=== PATIENT | female | born 1955 | race Caucasian/White ===

== ENCOUNTER 2016-08-25 14:39 | Emergency (ER) | payer OTHER ==
[~2016-08-25] VITALS: Ht 160 cm; Wt 64.4 kg
[~2016-08-25 14:39] MED LIST: ALBUTEROL SULF8.5 GM IH; AMBIEN PO; AMBIEN5 MG PO; BACTRIM,SEPT1 TABLET PO; CITALOPRAM HBR10 MG PO; CLONAZEPAM0.5 MG PO; CLONAZEPAM1 MG PO; CYMBALTA60 MG PO; DULOXETINE HCL60 MG PO; FLOVENT 22120 INHALA IH; KLONOPIN1 MG PO; LEVAQUIN750 MG PO; PREDNISONE50 MG PO; ROBITUSSIN DM118 ML PO; SIMVASTATIN PO; SIMVASTATIN20 MG PO; VENTOLIN HFA18 GM IH; VITAMIN D PO; VITAMIN D250000 UNIT PO; ZOLPIDEM TARTRAT5 MG PO; ZYRTEC10 M2 PO
[2016-08-25] MEDS ORDERED: ALPRAZOLAM1 MG PO (15:21)
[2016-08-25] MEDS ORDERED: AMBIEN5 MG PO (15:24)
[2016-08-25] MEDS ORDERED: ERGOCALCIF50000 UNIT PO (15:24)
[2016-08-25] MEDS ORDERED: ESTRADIOL1 EAC4 TP (15:25)
[2016-08-25] MEDS ORDERED: DELTASONE20 M1 PO (16:02)
[2016-08-25] MEDS ORDERED: ATARAX10 MG PO (16:02)
[2016-08-25 16:05] VITALS: BP 132/81
== END 2016-08-25 16:12 | disposition home or self-care (01) ==
LOC: EME 14:39
DX: L50.9 Urticaria, unspecified (principal); J44.9 Chronic obstructive pulmonary disease, unspecified; M79.7 Fibromyalgia; F17.200 Nicotine dependence, unspecified, uncomplicated
CPT/HCPCS: 99281; 99284; J1100; J1200

== ENCOUNTER 2016-08-27 03:01 | Emergency (ER) | payer OTHER ==
[~2016-08-27] VITALS: Ht 160 cm; Wt 63.6 kg
[~2016-08-27 03:01] MED LIST changes: +ALPRAZOLAM1 MG PO; +ATARAX10 MG PO; +DELTASONE20 M1 PO; +ERGOCALCIF50000 UNIT PO; +ESTRADIOL1 EAC4 TP
[2016-08-27 03:30] VITALS: BP 120/89
[2016-08-27 04:41] LABS: HEMATOCRIT 51.3 % (36.0-46.0); MCH 31.2 PG (29.0-34.0); MCHC 32.9 G/DL (30.0-36.0); MCV 94.6 FL (83-99); MEAN PLAT.VOLUME 9.1 uM^3 (9.5-12.4); PLATELET COUNT 201 K/uL (156-360); RBC DIS.WIDTH-CV 13.9 % (11.8-14.6); RBC DIS.WIDTH-SD 48.5 % (39-53); RED BLOOD COUNT 5.42 M/uL (3.80-5.20); WHITE BLOOD COUNT 18.9 K/uL (4.1-10.2)
[2016-08-27 04:49] LABS: CHLORIDE 104 mEq/L (99-109); POTASSIUM 3.8 mEq/L (3.7-5.4); SODIUM 138 mEq/L (136-147)
[2016-08-27 04:52] LABS: GLUCOSE 154 mg/dL (70-99)
[2016-08-27 04:53] LABS: ANION GAP 10 MEQ/L (2-14)
[2016-08-27 04:54] LABS: TOTAL BILIRUBIN 0.6 mg/dL (0.0-1.0)
[2016-08-27 04:55] LABS: ALKALINE PHOSPHATASE 60 IU/L (3-129)
[2016-08-27 04:56] LABS: GFR ESTIMATE (CALCULATED) > 59 mL/min/
[2016-08-27 04:57] LABS: DIRECT BILIRUBIN 0.2 mg/dL (0.0-0.3); UREA NITROGEN (BUN) 13 mg/dL (9-23)
[2016-08-27 04:59] LABS: LIPASE 47 U/L (1.0-51.0)
[2016-08-27] MEDS ORDERED: OMEPRAZOLE20 M2 PO (05:37)
[2016-08-27] MEDS ORDERED: ATARAX,VISTARIL50 MG PO (05:37)
[2016-08-27] MEDS ORDERED: PREDNISONE20 MG PO (05:37)
== END 2016-08-27 05:54 | disposition home or self-care (01) ==
LOC: EME 03:01
PROVIDERS: Physician Assistant
DX: L50.9 Urticaria, unspecified (principal); R10.9 Unspecified abdominal pain; R19.7 Diarrhea, unspecified; D72.829 Elevated white blood cell count, unspecified; T78.40XA Allergy, unspecified, initial encounter; J44.9 Chronic obstructive pulmonary disease, unspecified; M79.7 Fibromyalgia; F17.200 Nicotine dependence, unspecified, uncomplicated
CPT/HCPCS: 74177; 80048; 80076; 83690; 85027; 99281; 99284; J1200; J2930; J7030; Q0177; S0028

== ENCOUNTER 2017-06-18 13:28 | Emergency (ER) | payer OTHER ==
[~2017-06-18] VITALS: Ht 160 cm; Wt 65.4 kg
[~2017-06-18 13:28] MED LIST changes: +ATARAX,VISTARIL50 MG PO; +OMEPRAZOLE20 M2 PO; +PREDNISONE20 MG PO
[2017-06-18 14:04] LABS: BASOPHIL (%) 0.5 % (0-1); EOSINOPHIL (%) 2.2 % (0-5); EOSINOPHIL COUNT 0.2 K/uL (0-0.3); HEMATOCRIT 47.6 % (36.0-46.0); HEMOGLOBIN 16.1 G/DL (11.9-15.5); IMMATURE GRANULOCYTE (%) 0.4 % (0.0-0.7); MCH 31.6 PG (29.0-34.0); MCHC 33.8 G/DL (30.0-36.0); MCV 93.5 FL (83-99); MONOCYTE (%) 6.1 % (3-12); MONOCYTE COUNT 0.5 K/uL (0-0.8); NEUTROPHIL (%) 64.8 % (45-76); PLATELET COUNT 162 K/uL (156-360); RBC DIS.WIDTH-CV 14.6 % (11.8-14.6); RED BLOOD COUNT 5.09 M/uL (3.80-5.20); WHITE BLOOD COUNT 7.7 K/uL (4.1-10.2)
[2017-06-18 14:17] LABS: CHLORIDE 105 mEq/L (99-109); POTASSIUM 3.7 mEq/L (3.7-5.4); SODIUM 138 mEq/L (136-147)
[2017-06-18 14:19] LABS: GLUCOSE 114 mg/dL (70-99)
[2017-06-18 14:22] LABS: SERUM ETHYL ALCOHOL < 10 mg/dL
[2017-06-18 14:23] LABS: CREATININE 0.7 mg/dL (0.6-1.3); GFR ESTIMATE (CALCULATED) > 59 mL/min/
[2017-06-18 14:24] LABS: UREA NITROGEN (BUN) 10 mg/dL (9-23)
[2017-06-18 14:41] LABS: APPEARANCE SL.HAZY ((CLEAR)); BILIRUBIN NEGATIVE; BLOOD NEGATIVE; COLOR YELLOW ((YELLOW)); GLUCOSE (STRIP) NEGATIVE; KETONES 5; LEUKOCYTES NEGATIVE; NITRITE NEGATIVE; PROTEIN (STRIP) NEGATIVE; UROBILINOGEN 0.2 MG/DL (0.2-1.0)
[2017-06-18 14:44] LABS: BACTERIA RARE /HPF; EPITHELIAL CELLS 1+ /HPF; MUCUS 1+ /LPF; RED BLOOD CELLS 0-5 /HPF (0-5); WHITE BLOOD CELLS 0-5 /HPF (0-5)
[2017-06-18 14:51] LABS: AMPHETAMINE NEGATIVE (500 ng/mL); BENZODIAZEPINES PRESUMPTIVE POSITIVE (150 ng/mL); COCAINE NEGATIVE (150 ng/mL); METHAMPHETAMINE NEGATIVE (500 ng/mL); OPIATES (MORPHINE) NEGATIVE (100 ng/mL); PHENCYCLIDINE NEGATIVE (25 ng/mL); THC CANNABINOIDS PRESUMPTIVE POSITIVE (50 ng/mL)
[2017-06-18 14:52] LABS: BARBITURATES NEGATIVE (200 ng/mL); BUPRENORPHINE NEGATIVE (10 ng/mL); METHADONE NEGATIVE (200 ng/mL); OXYCODONE NEGATIVE (100 ng/mL); PROPOXYPHENE NEGATIVE (300 ng/mL); TRICYCLIC ANTIDEPRESSANTS NEGATIVE (300 ng/mL)
[2017-06-18 15:24] LABS: BENZODIAZEPINES, URINE SCREEN POSITIVE (200 ng/mL)
[2017-06-18] MEDS ORDERED: ZITHROMAX Z-PA250 MG PO (16:25)
[2017-06-18 16:46] VITALS: BP 153/94
== END 2017-06-18 16:48 | disposition home or self-care (01) ==
LOC: EME 13:28
PROVIDERS: Emergency Medicine
DX: F41.9 Anxiety disorder, unspecified (principal); F32.9 Major depressive disorder, single episode, unspecified; J20.9 Acute bronchitis, unspecified; Z91.5 Personal history of self-harm; J44.9 Chronic obstructive pulmonary disease, unspecified; I10 Essential (primary) hypertension; M79.7 Fibromyalgia; F17.200 Nicotine dependence, unspecified, uncomplicated; Z88.5 Allergy status to narcotic agent; Z88.6 Allergy status to analgesic agent
CPT/HCPCS: 80048; 81003; 84999; 85025; 90839; 99281; 99285; G0480

== ENCOUNTER 2018-01-09 02:57 | Emergency (ER) | payer OTHER ==
[~2018-01-09] VITALS: Ht 160 cm; Wt 69.6 kg
[~2018-01-09 02:57] MED LIST changes: +ZITHROMAX Z-PA250 MG PO
[2018-01-09] MEDS ORDERED: AUGMENTIN875 MG PO (04:31)
[2018-01-09] MEDS ORDERED: MEDROL DOSEPAK4 MG PO (04:31)
[2018-01-09 04:47] VITALS: BP 163/89
== END 2018-01-09 04:47 | disposition home or self-care (01) ==
LOC: EME → EDBD 02:57 → EME 04:47
DX: J40 Bronchitis, not specified as acute or chronic (principal); Z77.120 Contact with and (suspected) exposure to mold (toxic); J44.9 Chronic obstructive pulmonary disease, unspecified; M79.7 Fibromyalgia; F32.9 Major depressive disorder, single episode, unspecified; F41.9 Anxiety disorder, unspecified; F17.200 Nicotine dependence, unspecified, uncomplicated; Z87.01 Personal history of pneumonia (recurrent); Z86.19 Personal history of other infectious and parasitic diseases; Z90.49 Acquired absence of other specified parts of digestive tract; Z88.6 Allergy status to analgesic agent; Z88.5 Allergy status to narcotic agent; Z88.8 Allergy status to other drugs, medicaments and biological substances
CPT/HCPCS: 71046; 94640; 99281; 99285; J7512